=== PATIENT | female | born 1970 | race Caucasian/White ===

== ENCOUNTER 2017-08-31 08:12 | Emergency (ER) | payer SELFPAY ==
[~2017-08-31] VITALS: Ht 167.6 cm; Wt 74.8 kg
[2017-08-31 09:32] VITALS: BP 157/97
== END 2017-08-31 09:32 | disposition home or self-care (01) ==
LOC: ED 08:12
DX: L25.9 Unspecified contact dermatitis, unspecified cause (principal)